=== PATIENT | male | born 1965 | race Caucasian/White ===

== ENCOUNTER 2018-10-14 00:44 | Emergency (ER) | payer BC, SELFPAY ==
[2018-10-14 00:48] VITALS: BP 156/88; PULSE 88; RESP 18; TEMP 36.6; O2SAT 97; BMI 31.6
--- NOTE | 2018-10-14 00:55 | ED.DCSUM_ITS ---
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 no other injuries. Context: Sudden Onset Timing: Continuous Quality of Pain: - - sore Current Severity: Mild Maximum Severity: Mild Worsened by: palpation Relieved by: leaving alone Associated Symptoms: Negative for: Parasthesia, Loss of Funtion Narrative: Healthy, takes no blood thinner medications. Tetanus Immunization: <5 years Past Medical History Primary Care Physician: Ana Muñiz NP-C [Primary Care Provider] - Past Medical History: None Lives: With Family Smoking Status: Never smoker Review of Systems General: Denies: Chills, Fever Musculoskeletal: Reports: Extremity Pain. Denies: Swelling Skin: Reports: Wounds. Denies: Rash Neurological: Denies: Headache, Weakness, Numbness Physical Exam Vital Signs/Narrative: Vital Signs Temp Pulse Resp BP Pulse Ox 10/14/18 00:48 97.9 F 88 18 156/88 H 97 Inital Vital Signs reviewed: Yes - Extremity Exam Left Tib Fib: - - C-shaped laceration over mid-paiz; no bone visible. no apparent soft tissue loss. not grossly comtaminated.. Negative for: Limited ROM General: Well nourished, Well developed, - - well-appearing, nad Head: Normocephalic, Atraumatic Skin: Trauma - 7cm curved laceration right lower leg over mid-paiz Neurological: Alert, Oriented x3, Cranial nerves II-XII grossly intact, Normal Strength, Normal Sensation, Normal Gait Psychological: Normal affect, Normal Mood Diagnostic/Tx/Re-eval - Medical Decision Making Wound was cleansed thoroughly, prepped and draped in a sterile fashion and repaired as documented. Sutures out in approximately [address] on cephalexin at prophylactic dosing for 5 days given depth of wound into subcutaneous tissues and possibility for microscopic contamination, no gross contamination was seen. Tetanus is already up-to-date. Procedures - Lacerations right lower leg Length: 7 cm Depth: Sub Q Shape: Flap - curved Prep: Sterile Conditions Laceration repair: Irrigated, Lidocaine - 7cc, 1%, Local, Wound explored - no bone, tendon, muscle visible Irrigated (ml): 120 - under pressure Number of Sutures/Myrna: 11 Suture Information: Ethilon, Simple - #6, Mattress - #5, 4-0 Comment: good wound edge apposition and hemostasis. no complication. tolerated well. ED Disposition - Plan for ED Patient: Disposition: Home or Assisted Living Diagnosis: Laceration of right lower leg without complication Instructions: LACERATION, Extrem (Suture, Staple or Tape) Prescriptions: Cephalexin [Keflex] 500 mg PO Q12 #10 cap Prescription Printed Referrals: Ana Muñiz, ROAD EQUIPMENT OPERATOR-C [Primary Care Provider] - 10-14 Days suture removal
[2018-10-14 02:26] VITALS: BP 136/74; PULSE 85; O2SAT 94
== END 2018-10-14 02:29 | disposition home or self-care (01) ==
PROVIDERS: Emergency Provider Emergency Medicine; Family Provider Nurse Practitioner Primary Care; PCP Nurse Practitioner Primary Care
DX: S81.811A Laceration without foreign body, right lower leg, initial encounter (principal); V98.8XXA Other specified transport accidents, initial encounter; Y93.89 Activity, other specified; Y92.89 Other specified places as the place of occurrence of the external cause; Y99.9 Unspecified external cause status
CPT/HCPCS: 12002; 99283